=== PATIENT | male | born 1985 | race Caucasian/White ===

== ENCOUNTER 2016-11-01 00:10 | Emergency (ER) | payer OTHER ==
[~2016-11-01 00:10] MED LIST: BACO TOP; COL100UDC PO; HIBICLENS118 ML TOP; LIPI20 PO; METFORMIN ER500 M1 PO; MYL80 CH; PROZAC40 MG PO; SEROQUEL400 M1 PO; STERAPRED DS10 MG PO; SYNTHROID0.075 MG PO; XANAX0.5 MG PO
[2016-11-01 01:24] LABS: BASOPHIL % 1.5 % (0-2); PLATELET COUNT 270 x10^3mcL (130-400); RED CELL DISTRIBUTION WIDTH 12.9 % (11.5-14.5)
[2016-11-01 01:27] LABS: CALCIUM 8.7 mg/dL (8.5-10.1); CARBON DIOXIDE 25.9 mmol/L (21-32); CHLORIDE SERUM 100 mmol/L (98-107); CREATININE SERUM 0.9 mg/dL (0.7-1.3); GFR1 > 60 mL/min; GLUCOSE SERUM 351 mg/dL (74-106); POTASSIUM SERUM 3.9 mmol/L (3.5-5.1); SODIUM SERUM 136 mmol/L (136-145)
[2016-11-01 01:39] LABS: ALKALINE PHOSPHATASE 95 U/L (46-116); ALT/SGPT 118 U/L (16-63); AST/SGOT 131 U/L (15-37); BILIRUBIN TOTAL 0.3 mg/dL (0.20-1.00); TOTAL PROTEIN, SERUM 7.7 g/dL (6.4-8.2)
[2016-11-01 01:40] LABS: ALBUMIN 3.3 g/dL (3.4-5.0)
[2016-11-01 02:43] VITALS: BP 142/79
== END 2016-11-01 02:43 | disposition home or self-care (01) ==
LOC: ED 00:10
PROVIDERS: Emergency Medicine
DX: E11.65 Type 2 diabetes mellitus with hyperglycemia (principal); R42 Dizziness and giddiness; E07.9 Disorder of thyroid, unspecified; E78.00 Pure hypercholesterolemia, unspecified; F90.9 Attention-deficit hyperactivity disorder, unspecified type; Z88.5 Allergy status to narcotic agent
CPT/HCPCS: J1815; J7030

== ENCOUNTER 2017-06-28 18:21 | Emergency (ER) | payer OTHER ==
[~2017-06-28] VITALS: Ht 177.8 cm; Wt 156.9 kg
[2017-06-28 18:40] VITALS: BP 126/71; Ht 177.8 cm; Wt 156.9 kg
== END 2017-06-28 19:21 | disposition home or self-care (01) ==
LOC: ED 18:21
DX: H00.014 Hordeolum externum left upper eyelid (principal); E03.9 Hypothyroidism, unspecified; E11.9 Type 2 diabetes mellitus without complications; F90.9 Attention-deficit hyperactivity disorder, unspecified type; F31.9 Bipolar disorder, unspecified; E66.01 Morbid (severe) obesity due to excess calories; E78.00 Pure hypercholesterolemia, unspecified; Z88.5 Allergy status to narcotic agent

== ENCOUNTER 2017-07-06 22:21 | Emergency (ER) | payer OTHER ==
[~2017-07-06] VITALS: Ht 177.8 cm; Wt 161.0 kg
[2017-07-06 23:28] VITALS: Ht 177.8 cm; Wt 161.0 kg
[2017-07-07 02:32] VITALS: BP 150/76
== END 2017-07-07 01:50 | disposition home or self-care (01) ==
LOC: ED 22:21
DX: S83.91XA Sprain of unspecified site of right knee, initial encounter (principal); E03.9 Hypothyroidism, unspecified; E78.00 Pure hypercholesterolemia, unspecified; F43.10 Post-traumatic stress disorder, unspecified; F31.9 Bipolar disorder, unspecified; F90.9 Attention-deficit hyperactivity disorder, unspecified type; E66.01 Morbid (severe) obesity due to excess calories; E11.9 Type 2 diabetes mellitus without complications; I10 Essential (primary) hypertension; Z88.5 Allergy status to narcotic agent; W10.9XXA Fall (on) (from) unspecified stairs and steps, initial encounter; Y93.89 Activity, other specified; Y92.89 Other specified places as the place of occurrence of the external cause; Y99.8 Other external cause status